=== PATIENT | male | born 1960 | race Caucasian/White ===

== ENCOUNTER 2018-09-14 16:06 | Observation (INO) ==
[2018-09-14] MEDS ORDERED: Bisacodyl 10 MG Supp RECTAL PRN (21:55)
[2018-09-14] MEDS ORDERED: Acetaminophen 325 MG Tablet PO PRN (21:55)
[2018-09-14] MEDS ORDERED: Dextrose 50% in Water 50 ML Vial IV.PUSH PRN (22:36)
[2018-09-14 23:15] LABS: Creatine Kinase 55 U/L (39-308)
[2018-09-15] MEDS ORDERED: Sod Chloride 0.9% Inj 1,000 ML IV.CONT SCH (00:12)
[2018-09-15] MEDS ORDERED: Morphine Sulfate Inj 2 MG/ML Vial IV.PUSH PRN (00:13)
[2018-09-15] MEDS ORDERED: Sodium Chloride 0.9% 2 ML Flush PRN IV.FLUSH (00:17)
[2018-09-15 05:59] LABS: Baso % (Auto) 0.5 % (0.0-2.0); Eos # (Auto) 0.4 th/mm3 (0.0-0.4); Eos % (Auto) 4.7 % (0.0-4.0); Hematocrit 38.5 % (39.0-51.0); Hemoglobin 12.9 gm/dL (13.0-17.0); Lymph # (Auto) 1.7 th/mm3 (1.0-4.8); Mean Corpuscular HGB Conc 33.5 % (32.0-36.0); Mean Corpuscular Hemoglobin 28.1 pg (27.0-34.0); Mean Corpuscular Volume 84.1 fL (80.0-100.0); Mean Platelet Volume 7.4 fL (7.0-11.0); Mono # (Auto) 0.8 th/mm3 (0.0-0.9); Neut # (Auto) 5.8 th/mm3 (1.8-7.7); Neut % (Auto) 65.8 % (16.0-70.0); Platelet Count 242 th/mm3 (150-450); Red Blood Count 4.58 mil/mm3 (4.50-5.90); Red Cell Distribution Width 12.4 % (11.6-17.2); White Blood Count 8.7 th/mm3 (4.0-11.0)
[2018-09-15 06:08] LABS: Chloride 100 meq/L (98-107); Potassium 3.7 meq/L (3.5-5.1); Sodium 137 meq/L (136-145)
[2018-09-15 06:13] LABS: Albumin 3.1 g/dL (3.4-5.0); Anion Gap 8 meq/L (5-15); Blood Urea Nitrogen 19 mg/dL (7-18); Calcium 8.8 mg/dL (8.5-10.1); Carbon Dioxide 28.7 meq/L (21.0-32.0); Glucose,Random 119 mg/dL (74-106)
[2018-09-15 06:16] LABS: Alanine Aminotransferase 27 U/L (12-78); Aspartate Aminotransferase 12 U/L (15-37); Glomerular Filtration Rate Greater Than 89 mL/min (>89)
[2018-09-15 06:17] LABS: Total Protein 6.8 g/dL (6.4-8.2)
[2018-09-15 06:27] LABS: Thyroid Stimulating Hormone 1.31 uIU/mL (0.358-3.740)
[2018-09-15 06:44] LABS: Alkaline Phosphatase 49 U/L (45-117)
[2018-09-15] MEDS: Insulin NovoLOG Aspart Correctional Sugar Inj SQ SCH ×3 (07:57→16:58)
[2018-09-15] MEDS ORDERED: Sodium Chloride 0.9% 2 ML Flush BID IV.FLUSH SCH (09:00)
[2018-09-15] MEDS ORDERED: Senna/Docusate Sodium 8.6/50 MG Tablet PO SCH (09:00)
--- NOTE | 2018-09-15 09:31 | P.HP ---
History of Present Illness Primary Care Physician: Debra Sears Chief Complaint: Chest pain History of Present Illness: This is a 58-year-old male patient with a known medical history of asthma, hyperlipidemia, hypertension, diabetes who presented to the ED with complaints of chest pain. Patient states that over the past month he has had complaints of heaviness in his chest that radiates to his jaw and esophagus as well as his left shoulder, he states that the pain is squeezing and tight in nature, is pretty constant especially over the past 4 days, he states that the pain does worsen with coughing and activity, denies any known alleviating factors. He denies any associated nausea, vomiting or diaphoresis. He does admit to some shortness of breath with the pain. He states he tried Aleve at home which did not help with the pain. He denies ever having this type of pain before. He does admit to a previous stress test 2 years ago which was reportedly negative per patient's report. He does follow with a basting marker in [place] has not seen him for quite some time. Denies any recent illness including fever, chills, cough, dumping, nausea, vomiting, diarrhea or dysuria. He denies any recent changes to his medicines. He does have a significant family history in his mother's side of [place] at the age of 50. At the time of assessment patient does complain that his pain has continued his less severe and has continued to come and go. Was given Lipitor and aspirin in ED. Morphine available as needed per pain scale. - Diagnosis (1) Chest pain Review of Systems All other systems reviewed negative except as stated in [facility] - History History Provided By: Patient - Medical History Medical History: Medical History (Last Reviewed 09/15/18 @ 14:18 by Riddhi Andre) Asthma Deviated septum Diabetes GERD (gastroesophageal reflux disease) HTN (hypertension) High cholesterol Hx of TIA (transient ischemic attack) and stroke - Surgical History Surgical History: Surgical History (Last Reviewed 09/15/18 @ 14:18 by Riddhi Andre) H/O hernia repair H/O knee surgery History of surgery on arm - Family History Family History: Family History (Last Updated 09/15/18 @ 14:18 by Riddhi Andre) Other Cardiovascular disease - Social History I have reviewed the patient's Social History: Yes - Tobacco History Second Hand Smoke Exposure: No Smoking Status: Never smoker - Alcohol History How Often Do You Have a Drink Containing Alcohol: 2 to 4 times a month - Substance Use History Substance History: No History of Abuse - Travel History Recent Travel in the [place] Within the Last 8 Weeks: No Recent Travel Out of the Country Within the Last 8 Weeks: No - Immunization History Tetanus Immunization: >5 Years Hx Influenza Vaccine This Season: No Medications and Allergies Active Medications: Active Medications Acetaminophen (Tylenol) 650 mg PO Q4H PRN PRN Reason: Temp > 100.4 Al Hydroxide/Mg Hydroxide (Milk Of Magnesia Liq) 30 ml PO Q12H PRN PRN Reason: Mild Constipation Albuterol (Duoneb Neb (Prn)) 1 ampul NEB Q6HR NEB PRN PRN Reason: SHORTNESS OF BREATH/WHEEZING Aspirin (Ecotrin) 81 mg PO DAILY [facility] Last Admin: 09/15/18 08:11 Dose: 81 mg Atorvastatin Calcium (Lipitor) 40 mg PO [facility] Bisacodyl (Dulcolax Supp) 10 mg RECTAL DAILY PRN PRN Reason: SEVERE CONSITIPATION Dextrose (D50w Vial) 50 ml IV.PUSH UNSCH PRN PRN Reason: PER HYPOGLYCEMIA PROTOCOL Glucagon (Glucagon Inj) 1 mg OTHER PRN PRN PRN Reason: for Hypoglycemia Protocol Sodium Chloride (Ns Inj) 1,000 mls @ 42 mls/hr IV.CONT .[id number] [facility] Last Admin: 09/15/18 03:38 Dose: 42 mls/hr Insulin Aspart (Novolog Insulin Correctional Sugar Inj) 0 unit SQ ACHS [facility]; Protocol Last Admin: 09/15/18 07:57 Dose: Not Given Lactulose (Lactulose Liq) 30 ml PO DAILY PRN PRN Reason: SEVERE CONSITIPATION Morphine Sulfate (Morphine Inj) 2 mg IV.PUSH Q4H PRN PRN Reason: CHEST PAIN Last Admin: 09/15/18 08:32 Dose: 2 mg Nitroglycerin (Nitrostat Sl) 0.4 mg SL Q5M PRN PRN Reason: CHEST PAIN Ondansetron HCl (Zofran Inj) 4 mg IV.PUSH Q6H PRN PRN Reason: NAUSEA OR VOMITING Senna/Docusate Sodium (Jody-Colace) 1 tab PO BID [facility] Last Admin: 09/15/18 08:11 Dose: 1 tab Sennosides (Senokot) 17.2 mg PO Q12H PRN PRN Reason: Moderate Constipation Sodium Chloride (Ns Flush) 2 ml IV.FLUSH BID [facility] Last Admin: 09/15/18 08:12 Dose: Not Given Sodium Chloride (Ns Flush) 2 ml IV.FLUSH PRN PRN PRN Reason: FLUSH AFTER USING IV ACCESS Allergies Allergy/AdvReac Type Severity Reaction Status Date / Time No Known Allergies Allergy Verified 09/14/18 16:09 Home Medications Medication Instructions Recorded Confirmed Type albuterol sulfate 1.25 mg INHALATION Q4-6H PRN 08/16/18 09/14/18 History albuterol sulfate [ProAir HFA] 2 puff INHALATION Q4-6H PRN 08/16/18 09/14/18 History aspirin [Aspir-81] 81 mg PO DAILY 08/16/18 09/14/18 History atorvastatin 40 mg PO DAILY 08/16/18 09/14/18 History esomeprazole magnesium 40 mg PO DAILY 08/16/18 09/14/18 History exenatide microspheres [Bydureon 2 mg SUBCUT Q7D 08/16/18 09/14/18 History BCise] gemfibrozil 600 mg PO BID 08/16/18 09/14/18 History glimepiride 4 mg PO BID 08/16/18 09/14/18 History losartan-hydrochlorothiazide 1 tab PO DAILY 08/16/18 09/14/18 History modafinil [Provigil] 200 mg PO DAILY 08/16/18 09/14/18 History ranitidine HCl [Zantac] 150 mg PO HS 08/16/18 09/14/18 History sitagliptin-metformin [Janumet XR] 1 tab PO BID 08/16/18 09/14/18 History zolpidem 10 mg SUBLINGUAL HS 08/16/18 09/14/18 History Exam Vital signs: Vital Signs 09/14/18 23:59 09/15/18 00:00 09/15/18 04:00 Temperature 97.4 F L 97.1 F L Pulse Rate 82 77 Respiratory Rate 18 18 Blood Pressure 115/69 110/68 Pulse Oximetry 93 L 95 100 Intake & Output 09/14/18 09/15/18 09/15/18 18:59 06:59 18:59 Intake Total 200 / 200 Output Total 450 / 450 Balance -250 / -250 Weight 112.4 kg Intake: Oral 200 / 200 Output: Urine 450 / 450 Other: Date of Last Bowel Movement 09/13/18 Weight On Admission 112.4 kg Narrative: GENERAL: Well-developed, well-nourished patient in [facility]. SKIN: Warm and dry. No rash. HEAD: Normocephalic. Atraumatic. EYES: Pupils equal and round. No scleral icterus. No injection or drainage. ENT: No nasal bleeding or discharge. Mucous membranes pink and moist. NECK: Supple. Trachea midline. CARDIOVASCULAR: Regular rate and rhythm. S1, S2 noted. No murmur appreciated. No Reproducible chest pain to palpation. RESPIRATORY: No accessory muscle use. Clear to auscultation. Breath sounds equal bilaterally. GASTROINTESTINAL: Abdomen soft, non-tender, nondistended. Normoactive bowel sounds x4. MUSCULOSKELETAL: No obvious deformities. Extremities without clubbing, cyanosis , or edema. NEUROLOGICAL: Awake and alert. No obvious cranial nerve deficits. Motor grossly within normal limits. 5/5 muscle strength in bilateral upper and lower extremities. Normal speech. PSYCHIATRIC: Appropriate mood and affect; insight and judgment normal. Results - Labs CBC & Chem 7: 09/15/18 05:38 09/15/18 05:38 Labs: Laboratory Results - last 24 hr 09/14/18 09/14/18 09/15/18 22:32 23:21 05:38 CBC w Diff Auto diff final WBC 8.7 RBC 4.58 Hgb 12.9 L Hct 38.5 L MCV 84.1 MCH 28.1 MCHC 33.5 RDW 12.4 Plt Count 242 MPV 7.4 Neut % (Auto) 65.8 Lymph % (Auto) 20.0 Hancock % (Auto) 9.0 H Eos % (Auto) 4.7 H Baso % (Auto) 0.5 Neut # (Auto) 5.8 Lymph # (Auto) 1.7 Hancock # (Auto) 0.8 Eos # (Auto) 0.4 Baso # (Auto) 0.0 WBC Differential . Differential Comment . Sodium Potassium Chloride Carbon Dioxide Anion Gap BUN Creatinine Estimated GFR POC Glucose 185 H Random Glucose Calcium Total Bilirubin AST ALT Alkaline Phosphatase Total Creatine Kinase 55 Troponin I Less than 0.02 L Total Protein Albumin TSH 09/15/18 09/15/18 09/15/18 05:38 05:38 07:55 CBC w Diff WBC RBC Hgb Hct MCV MCH MCHC RDW Plt Count MPV Neut % (Auto) Lymph % (Auto) Hancock % (Auto) Eos % (Auto) Baso % (Auto) Neut # (Auto) Lymph # (Auto) Hancock # (Auto) Eos # (Auto) Baso # (Auto) WBC Differential Differential Comment Sodium 137 Potassium 3.7 Chloride 100 Carbon Dioxide 28.7 Anion Gap 8 BUN 19 H Creatinine 0.80 Estimated GFR Greater than 89 POC Glucose 105 Random Glucose 119 H Calcium 8.8 Total Bilirubin 0.6 AST 12 L ALT 27 Alkaline Phosphatase 49 Total Creatine Kinase Cancelled Troponin I Cancelled Total Protein 6.8 Albumin 3.1 L TSH 1.310 Caprini VTE Risk Assessment Caprini VTE Risk Assessment: No/Low Risk (score <= 1) Caprini Risk Assessment Model: Point Value = 1 Point Value = 2 Point Value = 3 Point Value = 5 Age 41-60 Minor surgery BMI > 25 kg/m2 Swollen legs Varicose veins or History of unexplained or recurrent spontaneous Oral contraceptives or hormone replacement Sepsis (< 1 month) Serious lung disease, including pneumonia (< 1 month) Abnormal pulmonary function Acute myocardial infarction Congestive heart failure (< 1 month) History of inflammatory bowel disease Medical patient at bed rest Age 61-74 Arthroscopic surgery Major open surgery (> 45 min) Laparoscopic surgery (> 45 min) Malignancy Confined to bed (> 72 hours) Immobilizing plaster cast Central venous access Age >= 75 History of VTE Family history of VTE Factor V Leiden Prothrombin [id number] Lupus anticoagulant Anticardiolipin antibodies Elevated serum homocysteine Heparin-induced thrombocytopenia Other congenital or acquired thrombophilia Stroke (< 1 month) Elective arthroplasty Hip, pelvis, or leg fracture Acute spinal cord injury (< 1 month) Prophylaxis Regimen: Total Risk Factor Score Risk Level Prophylaxis Regimen 0-1 Low Early ambulation 2 Moderate Order ONE of the following: *Sequential Compression Device (SCD) *Heparin 5000 units SQ BID 3-4 Higher Order ONE of the following medications: *Heparin 5000 units SQ TID *Enoxaparin/Lovenox 40 mg SQ daily (WT < 150 kg, CrCl > 30 mL/min) *Enoxaparin/Lovenox 30 mg SQ daily (WT < 150 kg, CrCl > 10-29 mL/min) *Enoxaparin/Lovenox 30 mg SQ BID (WT < 150 kg, CrCl > 30 mL/min) AND/OR *Sequential Compression Device (SCD) 5 or more Highest Order ONE of the following medications: *Heparin 5000 units SQ TID (Preferred with Epidurals) *Enoxaparin/Lovenox 40 mg SQ daily (WT < 150 kg, CrCl > 30 mL/min) *Enoxaparin/Lovenox 30 mg SQ daily (WT < 150 kg, CrCl > 10-29 mL/min) *Enoxaparin/Lovenox 30 mg SQ BID (WT < 150 kg, CrCl > 30 mL/min) AND *Sequential Compression Device (SCD) Assessment and Plan - Assessment (1) Chest pain Code(s): R07.9 - Chest pain, unspecified Status: Acute - Plan This is a 58-year-old male patient with: Chest pain -Patient is admitted to the chest pain center for observation. Serial EKGs and serial troponins have been ordered for ruling out ACS purposes. Serial troponins flat. -EKG reviewed showing some mild ST depression in 2, 3 and aVF. -Cardiac telemetry monitored overnight, no arrhythmias. -Patient's risk factors for coronary disease include his mother having a heart attack in her 50s. He does have history of hyperlipidemia hypertension on medications at home. He was ruled out with serial EKGs and serial troponins. -Patient underwent a cardiac treadmill stress test to further rule out any ischemia, is reviewed by on-call basting marker, there is some ST depression in leads II, III and aVF. -Will order for a Lexiscan to further rule out ischemia. -Further hospitalization and treatment plan will depend on nuclear imaging results. -Patient stable at this time and agreeable to plan. History of type 2 diabetes, chronic: Accu-Chek before meals at bedtime, sliding scale, cover as needed. Monitor for hypoglycemia due to n.p.o. status. Hypertension, chronic: We will continue home medications. Monitor for hypotension. Monitor blood pressure trends. Hyperlipidemia, chronic: We will continue home statin. DVT prophylaxis: SCDs.
[2018-09-15 10:16] LABS: Chol/HDL Ratio 2.74 Ratio; HDL Cholesterol 35.3 mg/dL (40.0-60.0)
--- NOTE | 2018-09-15 13:28 | ECG ---
Date Performed: 09/15/2018 Time Performed: 03:54:10 PTAGE: 58 years EKG: Sinus rhythm NONSPECIFIC T-WAVE ABNORMALITY BORDERLINE ECG PREVIOUS TRACING : 09/14/2018 22.30 DOCTOR: River Rebolledo Interpretating Date/Time 09/15/2018 13:26:29
--- NOTE | 2018-09-15 13:32 | ECG ---
Date Performed: 09/14/2018 Time Performed: 22:30:35 PTAGE: 58 years EKG: Sinus rhythm NONSPECIFIC T-WAVE ABNORMALITY BORDERLINE ECG NO PREVIOUS TRACING DOCTOR: River Rebolledo Interpretating Date/Time 09/15/2018 13:29:41
[2018-09-15] MEDS ORDERED: Regadenoson Inj 0.4 MG/5 ML Syringe IV.PUSH ONE (16:19)
--- NOTE | 2018-09-15 17:13 | NM ---
EXAM DATE: 09/15/2018 5:06 PM EDT AGE/SEX: 58 years / Male INDICATIONS:Angina. Abnormal Exercise Treadmill Test Substernal chest pain. CLINICAL DATA: This is the patient's initial encounter. Patient reports that signs and symptoms have been present for 1 day and indicates a pain score of 6/10. MEDICAL/SURGICAL HISTORY: Gastroesophageal reflux disease. Diabetes mellitus type II. Hyperte nsion. . Hernia, knee and arm surgery. COMPARISON: No prior exams available for comparison. DOSE: 11 mCi Tc 99m Myoview at rest 35 mCi [id number] at stress 0.4 mg Lexiscan STRESS SYMPTOMS: Dyspnea. EJECTION FRACTION: 67 % TECHNIQUE: The patient underwent pharmacologic stress with infusion of prescribed dose. Continuous ECG tracing was monitored during stress. Gated SPECT imaging was performed after stress and conventi onal SPECT imaging was performed at rest. The examination was performed on a SPECT/CT scanner, both attenuation and non-corrected datasets were reviewed. FINDINGS: Distribution: The maximum perfused segment at stress is in the wall. Perfusion Study: The pattern of perfusion at stress is within normal limits. Gated Study: There are intact wall motion and wall thickening without hypokinetic or dyskinetic segm ents. The ejection fraction is calculated at 67%. RISK CATEGORY: Low (<1% Annual Motality Rate) CONCLUSION: 1. Normal wall motion and calculated ejection fraction. 2. No evidence of ischemia or infarction. Electronically signed by: Abhinav Morrissey MD 09/15/2018 5:12 PM EDT
--- NOTE | 2018-09-16 13:47 | TR ---
Date Performed: 09/15/2018 Time Performed: 13:02:01 DOCTOR: Luis Barker DRUG LIST: CLINICAL HISTORY: REASON FOR TEST: REASON FOR ENDING: OBSERVATION: CONCLUSION: Luis protocol performed and completed, test stopped secondary to reaching target he art and leg fatigue. Some chest heaviness noted as well as shortness of breath, good exercise toleran ce. Good BP response. Recovery quick.Maximum BR=910 Target HR Achieved=99.0% Maximum JA=394/66 Total Exercise Time=7:09 COMMENTS: abnormal ST DEPRESSION and T wave changes, recommend nuclear stress testing.
--- NOTE | 2018-09-18 09:12 | TR ---
Date Performed: 09/15/2018 Time Performed: 16:33:25 DOCTOR: Ryan Garsia DRUG LIST: CLINICAL HISTORY: CHEST PAIN REASON FOR TEST: Chest pain REASON FOR ENDING: OBSERVATION: CONCLUSION: Lexiscan stress test was performed under standard four minute protocol. Radionuclide was injected one minute prior to ending the test. No electrocardiographic abormalities were present that were diagnostic of ischemia although some nonspecific change was noted. Nuclear imaging and inte rpretation are pending. COMMENTS:
== END 2018-09-15 18:58 | disposition home or self-care (01) ==
LOC: PH3 20:49 → PHEDDLT 20:49
PROVIDERS: ADMIT Internal Medicine; ATTEND Internal Medicine